=== PATIENT | male | born 1980 | race Caucasian/White ===

== ENCOUNTER → 2019-08-14 | Outpatient (CLI) | payer OTHER ==
[2019-08-14 14:22] LABS: Basophils # (A) 0.1 k/uL (0-0.2); Basophils % (A) 1 %; Eosinophils # (A) 0.2 k/uL (0-0.7); Eosinophils % (A) 3 %; HCT 50.3 % (39.0-53.0); HGB 16.7 gm/dL (13.0-17.5); Lymphocytes # (A) 1.5 k/uL (1.0-4.8); Lymphocytes % (A) 22 %; MCH 31.1 pg (25.0-35.0); MCHC 33.1 g/dL (31.0-37.0); Mean Platelet Volume 7.4; Monocytes # (A) 0.3 k/uL (0-1.0); Monocytes % (A) 4 %; Neutrophils # (A) 4.6 k/uL (1.3-7.7); Neutrophils % (A) 69 %; Platelet Count 255 k/uL (150-450); RBC 5.36 m/uL (4.30-5.90); RDW 12.6 % (11.5-15.5); WBC 6.7 k/uL (3.8-10.6)
[2019-08-14 14:24] LABS: African American GFR (CKD) >90 (>60 ml/min/1.73 sqM); Anion Gap 10 mmol/L; Blood Urea Nitrogen 18 mg/dL (9-20); Calcium 9.2 mg/dL (8.4-10.2); Carbon Dioxide 31 mmol/L (22-30); Chloride 98 mmol/L (98-107); Glucose 98 mg/dL (74-99); Non-African American GFR(CKD) >90 (>60 ml/min/1.73 sqM); Potassium 4.2 mmol/L (3.5-5.1); Sodium 139 mmol/L (137-145)
== END | disposition home or self-care (01) ==
LOC: LABPAT 12:42
PROVIDERS: ATTEND Urology
DX: Z01.812 Encounter for preprocedural laboratory examination (principal); N20.0 Calculus of kidney
CPT/HCPCS: 36415; 80048; 85025

== ENCOUNTER 2019-08-20 07:09 | Day surgery (SDC) | payer OTHER ==
[2019-08-16 08:40] VITALS: BMI 21.5
--- NOTE | 2019-08-18 15:50 | P.GSHP ---
History of Present Illness H&P Date: 08/15/19 Chief Complaint: Left flank pain The patient is a 39-year-old white male with a history of kidney stones. He has experienced left flank pain since February 2019. A KUB x-ray in June 2019 showed a probable 9 mm left renal calculus. Alternative treatment options have been reviewed, and he has elected to undergo extracorporal shockwave lithotripsy (ESWL). 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 Additional Past Surgical History / Comment(s): Melanoma excision age 8, EGD, colonoscopy - Past Family History Mother Family Medical History: Cancer Additional Family Medical History / Comment(s): breast cancer Medications and Allergies Home Medications Medication Instructions Recorded Confirmed Type Acetaminophen [Tylenol Extra 500 mg PO DIRECTED PRN 08/16/19 08/16/19 History Strength] Ascorbic Acid [Vitamin C] 1 dose PO DAILY 08/16/19 08/16/19 History Devils Claw Herbal Supplement 1 dose PO DAILY 08/16/19 History Vitamin B Complex 1 each PO DAILY 08/16/19 08/16/19 History Allergies Allergy/AdvReac Type Severity Reaction Status Date / Time Penicillins Allergy Unknown Rash/Hives Verified 08/16/19 08:29 Surgical - Exam - General well developed, well nourished, no distress - Neck no masses, trachea midline - Respiratory normal respiratory effort, clear to auscultation - Cardiovascular Rhythm: regular Abnormal Heart Sounds: systolic murmur, diastolic murmur - Abdomen Abdomen: soft, non tender, no guarding, no rigid, no rebound - Genitourinary normal penis with no external lesions, testicles non-tender - Psychiatric oriented to time, oriented to person, oriented to place, speech is normal, memory intact Assessment and Plan (1) Left renal stone Status: Acute Code(s): N20.0 - CALCULUS OF KIDNEY SNOMED Code(s): 02086716 Plan: I discussed with the patient the treatment of the calculus with ESWL. I explained the possible need for repeat ESWL or alternative treatment in the event of treatment failure or incomplete fragmentation. I discussed the risks of ESWL, including anesthesia, renal contusion, perinephric hematoma, collateral damage to other organs, and [place]str[place]. The possible need for a secondary intervention such as a stent or ureteroscopy was discussed. The patient expressed an understanding of the procedure and risks including but not limited to bleeding, infection, obstruction, and rarely injury to other organs such as the liver or spleen. The patient understands that the procedure will be performed by Dr. Falk.
[~2019-08-20 07:09] MED LIST: DEXAMETHASONE SOD PHOSPHATE 10 MG/ML 1 ML VIAL IV ONE; LIDOCAINE 1% 20 ML VIAL (10MG/ML) FOR IV START INTRADERMA PRN; MIDAZOLAM 2 MG/2 ML VIAL IV PRN; ONDANSETRON 4 MG/2 ML VIAL IVP ONE; fentaNYL (PF) 50 MCG/ML 2 ML AMP IV PRN
--- NOTE | 2019-08-20 07:36 | XR ---
EXAMINATION TYPE: XR KUB DATE OF EXAM: 08/20/2019 CLINICAL DATA: 39-year-old male preop lithotripsy, [facility] COMPARISON: None FINDINGS: Nonobstructive bowel gas pattern. A few scattered punctate densities projecting over the colon likely some type of ingested medication. 1.0 cm calcification projecting at the left mid abdomen. Mild overall stool burden. IMPRESSION: 1 cm left-sided renal calculus.
[2019-08-20 07:47] VITALS: RESP 16; TEMP 98.7
[2019-08-20] MEDS: LACTATED RINGERS 1,000 ML IV SCH ×2 (07:47→09:01)
[2019-08-20] MEDS ORDERED: fentaNYL (PF) 50 MCG/ML 2 ML AMP ONE (09:00)
[2019-08-20] MEDS ORDERED: MIDAZOLAM 2 MG/2 ML VIAL ONE (09:00)
[2019-08-20] MEDS ORDERED: PROPOFOL 10 MG/ML 20 ML VIAL IV ONE (09:00)
--- NOTE | 2019-08-20 09:36 | P.OP ---
Date of Procedure: 08/20/19 Preoperative Diagnosis: Left renal stone Postoperative Diagnosis: Same Procedure(s) Performed: Extracorporeal shockwave lithotripsy, 2500 shocks, energy level IV Anesthesia: MAC Surgeon: Jamey Falk Pathology: none sent Condition: stable Disposition: PACU Indications for Procedure: The patient is a 39-year-old gentleman with a 9 mm renal stone in the left upper pole with pain. He come for shockwave lithotripsy Description of Procedure: Patient is brought to the operating suite. He's placed in the lithotripsy table in a supine position. The stone was seen in 2 views of fluoroscopy. After adequate IV sedation shockwave lithotripsy is performed. A total 2500 shocks at energy level XL administered. The stone is fractured nicely. At the end of the procedure the patient's awake and returned recovery in good condition. Tell procedure well be discharged home upon recovery. He'll follow-up in the office later this week with . The patient's postoperative instructions have been given and understood by the patient.
[2019-08-20 10:02] VITALS: BP 129/88; PULSE 72
== END 2019-08-20 10:24 | disposition home or self-care (01) ==
LOC: ORWHC2ENDO 07:09
PROVIDERS: ATTEND Urology
DX: N20.0 Calculus of kidney (principal); Z86.711 Personal history of pulmonary embolism; K57.90 Diverticulosis of intestine, part unspecified, without perforation or abscess without bleeding; J70.8 Respiratory conditions due to other specified external agents; Z85.820 Personal history of malignant melanoma of skin; Z80.3 Family history of malignant neoplasm of breast; Z88.0 Allergy status to penicillin
CPT/HCPCS: 74018; 50590; J2250; J1100; J2405; J3010; J2704

== ENCOUNTER → 2019-08-24 | Outpatient (CLI) | payer OTHER ==
--- NOTE | 2019-08-24 07:51 | XR ---
EXAMINATION TYPE: XR abdomen 1V DATE OF EXAM: 08/24/2019 COMPARISON: 08/20/2019 INDICATION: Renal calculus TECHNIQUE: Single view abdomen frontal projection FINDINGS: There is a normal bowel gas pattern. Fecal debris is through the colon. Psoas margins are normal. No organomegaly is present. Previous left-sided renal calcification is not identified at this time. No suspicious calcifications suggest ureteral stone is evident. IMPRESSION: 1. Nonvisualization of previous left renal stone 2. Nonspecific abdomen
== END | disposition home or self-care (01) ==
LOC: RADXRMAIN 07:11
PROVIDERS: ATTEND Urology
DX: N20.0 Calculus of kidney (principal)
CPT/HCPCS: 74018

== ENCOUNTER → 2020-03-26 | Outpatient (CLI) | payer MEDICAID ==
--- NOTE | 2020-03-26 15:20 | XR ---
EXAMINATION TYPE: XR abdomen 1V DATE OF EXAM: 03/26/2020 HISTORY: Pain Comparison: 08/24/2019Single KUB is submitted for interpretation. Findings: Right renal calculi: Limited by overlying bowel content. 3 mm calculus overlies the lower pole of the left kidney. Right ureteral calculi: None Visualized. Left renal calculi: Limited by overlying bowel content. Left ureteral calculi: None Visualized. Pelvic calcifications: None Visualized. Bowel gas pattern is unremarkable. No free air. No mass effects. IMPRESSION: 1. Limited study given extensive overlying bowel content. Probable calculus overlying the lower pole of the left kidney.
== END | disposition home or self-care (01) ==
LOC: RADXRMAIN 14:42
PROVIDERS: ATTEND Urology
DX: N23 Unspecified renal colic (principal)
CPT/HCPCS: 74018

== ENCOUNTER → 2020-03-31 | Outpatient (CLI) | payer MEDICAID ==
--- NOTE | 2020-03-31 15:02 | XR ---
EXAMINATION TYPE: XR KUB DATE OF EXAM: 03/31/2020 COMPARISON: 08/20/2019 INDICATION: Stones TECHNIQUE: Single view abdomen upright view FINDINGS: Normal colonic bowel gas is present to Psoas margins are normal. There are multiple punctate calcifications in the left renal pelvic area. The largest measures approx imately 0.3 cm. IMPRESSION: 1. Small left renal stones
== END | disposition home or self-care (01) ==
LOC: RADXRMAIN 14:35
PROVIDERS: ATTEND Urology
DX: N20.0 Calculus of kidney (principal)
CPT/HCPCS: 74018

== ENCOUNTER → 2020-09-01 | Outpatient (CLI) | payer MEDICAID ==
--- NOTE | 2020-09-01 17:32 | XR ---
EXAMINATION TYPE: XR KUB DATE OF EXAM: 09/01/2020 Comparison: 03/31/2020 Clinical History: 40-year-old male N20.0 Findings: Some type of linear high density artifact is partially visualized projecting at the lower right chest . Clinical correlation is recommended as etiology. Otherwise, lung bases are clear. Supine imaging limited for assessment of free air. No dilated small bowel. Scattered mild to moderate stool burden. There is a 4 mm calcification projecting at the left mid abdomen. Impression: 1. A 4 mm left renal calculus is redemonstrated (measuring 3 mm, previously). 2. Mild to moderate stool burden. 3. Further clinical correlation for a partially visualized linear high density artifact projecting at the lower right chest.
== END ==
LOC: RADXRMAIN 14:33
PROVIDERS: ATTEND Urology
DX: N20.0 Calculus of kidney (principal)
CPT/HCPCS: 74018

== ENCOUNTER 2021-03-05 14:23 | Emergency (ER) | payer MEDICAID ==
[2021-03-05 15:32] VITALS: RESP 18
[2021-03-05] MEDS ORDERED: KETOROLAC 15 MG/ML 1 ML VIAL IVP STA (16:47)
[2021-03-05] MEDS ORDERED: SODIUM CHLORIDE 0.9% 1,000 ML IV STA (16:47)
--- NOTE | 2021-03-05 16:51 | ED ---
General Adult HPI - General Chief complaint: Recheck/Abnormal Lab/Rx Stated complaint: Body Numbness Source: patient, family (Father), RN notes reviewed Mode of arrival: ambulatory Limitations: no limitations - History of Present Illness Initial comments: 41-year-old white male, alert and active 4, presents to the emergency room with complaints of whole body numbness and tingling, fatigue, pelvic pain, left flank pain and possible kidney stone. Patient states that in the past he has been treated for pulmonary embolisms. He does have a history of diverticulosis. States that he was told he had a kidney stone on the left that was 4 mm and that he would need to pass it. He was supposed to follow up with Dr. Carlos 4 months ago and did not. 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 He now lives here with his dad and needs new doctors. Patient states that he has lower abdominal pain that radiated from his left flank and is concerned for possible urinary tract infection as well. He denies any nausea vomiting or diarrhea. He states he's had no fevers. No headaches, chest pain or shortness of breath. -: days(s) (2) Location: abdomen Radiation: non-radiation Severity scale (1-10): 6 Quality: sharp Consistency: constant Improves with: none Worsens with: none Associated Symptoms: malaise, other (Whole body numbness and tingling) Treatments Prior to Arrival: none - Related Data Home Medications Medication Instructions Recorded Confirmed Ascorbic Acid [Vitamin C] 1,000 mg PO DAILY 03/05/21 03/05/21 Multivitamins, Thera [Multivitamin 1 tab PO DAILY 03/05/21 03/05/21 (formulary)] Zinc 50 mg PO DAILY 03/05/21 03/05/21 Allergies Allergy/AdvReac Type Severity Reaction Status Date / Time Penicillins Allergy Unknown Rash/Hives Verified 03/05/21 18:11 Review of Systems ROS Statement: Those systems with pertinent positive or pertinent negative responses have been documented in the HPI. ROS Other: All systems not noted in ROS Statement are negative. 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 History of Any Multi-Drug Resistant Organisms: None Reported Additional Past Surgical History / Comment(s): Melanoma excision age 8, EGD, colonoscopy Past Anesthesia/Blood Transfusion Reactions: No Reported Reaction Past Psychological History: No Psychological Hx Reported Smoking Status: Never smoker Past Alcohol Use History: Rare Past Drug Use History: None Reported - Past Family History Mother Family Medical History: Cancer Additional Family Medical History / Comment(s): breast cancer General Exam Limitations: no limitations General appearance: alert, in no apparent distress, anxious Head exam: Present: atraumatic, normocephalic, normal inspection Eye exam: Present: EOMI ENT exam: Present: normal exam, normal oropharynx, mucous membranes moist Neck exam: Present: normal inspection, full ROM. Absent: tenderness, meningismus, lymphadenopathy Respiratory exam: Present: normal lung sounds bilaterally. Absent: respiratory distress, wheezes, rales, rhonchi, stridor Cardiovascular Exam: Present: regular rate, normal rhythm, normal heart sounds. Absent: systolic murmur, diastolic murmur, rubs, gallop, clicks GI/Abdominal exam: Present: soft, tenderness (Pelvic), normal bowel sounds. Absent: distended, guarding, rebound, rigid Extremities exam: Present: normal inspection, full ROM, normal capillary refill. Absent: tenderness, pedal edema, joint swelling, calf tenderness Back exam: Absent: tenderness, CVA tenderness (R), CVA tenderness (L), muscle spasm, paraspinal tenderness, vertebral tenderness Neurological exam: Present: alert, oriented X3, CN II-XII intact, normal gait Expanded Patient oriented to: Present: person, place, time Speech: Present: fluid speech Eye Response: (4) open spontaneously Motor Response: (6) obeys commands Verbal Response: (5) oriented [place] Total: 15 Psychiatric exam: Present: normal affect, normal mood, anxious Skin exam: Present: warm, dry, intact, normal color. Absent: rash, cyanosis, diaphoretic Course Vital Signs 03/05/21 03/05/21 03/05/21 15:28 17:22 19:16 Temperature 98.6 F Pulse Rate 86 88 88 Respiratory 18 18 18 Rate Blood Pressure 144/94 134/90 148/99 O2 Sat by Pulse 96 97 95 Oximetry Medical Decision Making - Medical Decision Making X-ray KUB shows a 4 mm calcification over the left renal projecting over the lower pole medially. There is no acute process. His white blood cell count was 6.7, he no evidence of anemia. His electrolytes are unremarkable. His urine is clear infection. He'll be directed to follow up with his primary care doctor or return if any new or worsening symptoms. - Lab Data Result diagrams: 03/05/21 17:20 03/05/21 17:20 Lab Results 03/05/21 03/05/21 03/05/21 Range/Units 17:20 17:20 17:20 WBC 6.7 (3.8-10.6) k/uL RBC 5.46 (4.30-5.90) m/uL Hgb 17.9 H (13.0-17.5) gm/dL Hct 50.9 (39.0-53.0) % MCV 93.2 (80.0-100.0) fL MCH 32.7 (25.0-35.0) pg MCHC 35.1 (31.0-37.0) g/dL RDW 13.1 (11.5-15.5) % Plt Count 245 (150-450) k/uL MPV 6.9 Neutrophils % 67 % Lymphocytes % 24 % Monocytes % 5 % Eosinophils % 3 % Basophils % 1 % Neutrophils # 4.5 (1.3-7.7) k/uL Lymphocytes # 1.6 (1.0-4.8) k/uL Monocytes # 0.3 (0-1.0) k/uL Eosinophils # 0.2 (0-0.7) k/uL Basophils # 0.0 (0-0.2) k/uL Sodium 137 (137-145) mmol/L Potassium 3.9 (3.5-5.1) mmol/L Chloride 103 (98-107) mmol/L Carbon Dioxide 26 (22-30) mmol/L Anion Gap 8 mmol/L BUN 9 (9-20) mg/dL Creatinine 0.73 (0.66-1.25) mg/dL Est GFR (CKD-EPI)AfAm >90 (>60 ml/min/1.73 sqM) Est GFR (CKD-EPI)NonAf >90 (>60 ml/min/1.73 sqM) Glucose 99 (74-99) mg/dL Plasma Lactic Acid Pankaj 1.0 (0.7-2.0) mmol/L Calcium 9.6 (8.4-10.2) mg/dL Total Bilirubin 0.4 (0.2-1.3) mg/dL AST 20 (17-59) U/L ALT 15 (4-49) U/L Alkaline Phosphatase 76 (38-126) U/L Total Protein 7.5 (6.3-8.2) g/dL Albumin 4.8 (3.5-5.0) g/dL Amylase 85 (30-110) U/L Lipase 93 (23-300) U/L Urine Color Urine Appearance (Clear) Urine pH (5.0-8.0) Ur Specific [place] (1.001-1.035) Urine Protein (Negative) Urine Glucose (UA) (Negative) Urine Ketones (Negative) Urine Blood (Negative) Urine Nitrite (Negative) Urine Bilirubin (Negative) Urine Urobilinogen (<2.0) mg/dL Ur Leukocyte Esterase (Negative) 03/05/21 Range/Units 19:10 WBC (3.8-10.6) k/uL RBC (4.30-5.90) m/uL Hgb (13.0-17.5) gm/dL Hct (39.0-53.0) % MCV (80.0-100.0) fL MCH (25.0-35.0) pg MCHC (31.0-37.0) g/dL RDW (11.5-15.5) % Plt Count (150-450) k/uL MPV Neutrophils % % Lymphocytes % % Monocytes % % Eosinophils % % Basophils % % Neutrophils # (1.3-7.7) k/uL Lymphocytes # (1.0-4.8) k/uL Monocytes # (0-1.0) k/uL Eosinophils # (0-0.7) k/uL Basophils # (0-0.2) k/uL Sodium (137-145) mmol/L Potassium (3.5-5.1) mmol/L Chloride (98-107) mmol/L Carbon Dioxide (22-30) mmol/L Anion Gap mmol/L BUN (9-20) mg/dL Creatinine (0.66-1.25) mg/dL Est GFR (CKD-EPI)AfAm (>60 ml/min/1.73 sqM) Est GFR (CKD-EPI)NonAf (>60 ml/min/1.73 sqM) Glucose (74-99) mg/dL Plasma Lactic Acid Pankaj (0.7-2.0) mmol/L Calcium (8.4-10.2) mg/dL Total Bilirubin (0.2-1.3) mg/dL AST (17-59) U/L ALT (4-49) U/L Alkaline Phosphatase (38-126) U/L Total Protein (6.3-8.2) g/dL Albumin (3.5-5.0) g/dL Amylase (30-110) U/L Lipase (23-300) U/L Urine Color Yellow Urine Appearance Clear (Clear) Urine pH 6.5 (5.0-8.0) Ur Specific [place] 1.009 (1.001-1.035) Urine Protein Negative (Negative) Urine Glucose (UA) Negative (Negative) Urine Ketones Negative (Negative) Urine Blood Negative (Negative) Urine Nitrite Negative (Negative) Urine Bilirubin Negative (Negative) Urine Urobilinogen <2.0 (<2.0) mg/dL Ur Leukocyte Esterase Negative (Negative) Disposition Clinical Impression: Abdominal pain Disposition: HOME SELF-CARE Condition: Good Instructions (If sedation given, give patient instructions): Abdominal Pain (ED) Additional Instructions: Return to the emergency room with any new or worsening symptoms including fever, chest pain or shortness of breath. Follow-up with neurology and primary care doctor as provided Is patient prescribed a controlled substance at d/c from ED?: No Referrals: None,Stated [Primary Care Provider] - 1-2 days Duarte Granados MD [STAFF PHYSICIAN] - 1-2 days Uri Trujillo DO [STAFF PHYSICIAN] - 1-2 days Austin Mario MD [STAFF PHYSICIAN] - 1-2 days Time of Disposition: 19:49
[2021-03-05 17:36] LABS: Basophils % (A) 1 %; Eosinophils # (A) 0.2 k/uL (0-0.7); Eosinophils % (A) 3 %; HCT 50.9 % (39.0-53.0); HGB 17.9 gm/dL (13.0-17.5); Lymphocytes # (A) 1.6 k/uL (1.0-4.8); Lymphocytes % (A) 24 %; MCH 32.7 pg (25.0-35.0); MCHC 35.1 g/dL (31.0-37.0); MCV 93.2 fL (80.0-100.0); Mean Platelet Volume 6.9; Monocytes # (A) 0.3 k/uL (0-1.0); Monocytes % (A) 5 %; Neutrophils # (A) 4.5 k/uL (1.3-7.7); Neutrophils % (A) 67 %; Platelet Count 245 k/uL (150-450); RBC 5.46 m/uL (4.30-5.90); RDW 13.1 % (11.5-15.5); WBC 6.7 k/uL (3.8-10.6)
[2021-03-05 17:45] LABS: ALT 15 U/L (4-49); AST 20 U/L (17-59); African American GFR (CKD) >90 (>60 ml/min/1.73 sqM); Albumin 4.8 g/dL (3.5-5.0); Alkaline Phosphatase 76 U/L (38-126); Amylase 85 U/L (30-110); Anion Gap 8 mmol/L; Blood Urea Nitrogen 9 mg/dL (9-20); Calcium 9.6 mg/dL (8.4-10.2); Carbon Dioxide 26 mmol/L (22-30); Chloride 103 mmol/L (98-107); Glucose 99 mg/dL (74-99); Lipase 93 U/L (23-300); Non-African American GFR(CKD) >90 (>60 ml/min/1.73 sqM); Potassium 3.9 mmol/L (3.5-5.1); Sodium 137 mmol/L (137-145); Total Bilirubin 0.4 mg/dL (0.2-1.3); Total Protein 7.5 g/dL (6.3-8.2)
--- NOTE | 2021-03-05 17:50 | XR ---
EXAMINATION TYPE: XR KUB - 2 VIEWS DATE OF EXAM: 03/05/2021 5:03 PM CLINICAL HISTORY: Pain, weakness TECHNIQUE: 2 upright views COMPARISON: 09/01/2020 FINDINGS: Visualized lung bases and pleural spaces are negative. Scattered gas is seen in non-distended small bowel loops. Gas and fecal material is seen in non-distended colon. There is no visceromegaly or mass appreciated. The previously seen 4 mm calcification over the left renal shadow appears to remain, projecting over the lower pole medially. No other calcifications. No focal skeletal findings. IMPRESSION: No acute process.
[2021-03-05 19:34] LABS: Appearance,Urine Clear (Clear); Bilirubin,Urine Negative (Negative); Blood,Urine Negative (Negative); Color,Urine Yellow; Glucose,Urine (UA) Negative (Negative); Ketones,Urine Negative (Negative); Leukocyte Esterase,Urine Negative (Negative); Nitrite,Urine Negative (Negative); PH, Urine 6.5 (5.0-8.0); Protein,Urine Negative (Negative); Specific Gravity,Urine 1.009 (1.001-1.035); Urobilinogen,Urine <2.0 mg/dL (<2.0)
[2021-03-05 20:32] VITALS: BP 149/99; PULSE 86; TEMP 98.5
== END 2021-03-05 20:30 | disposition home or self-care (01) ==
LOC: EC 14:23
DX: R10.9 Unspecified abdominal pain (principal); Z86.711 Personal history of pulmonary embolism; Z88.0 Allergy status to penicillin
CPT/HCPCS: 99284; 96374; 96361; 36415; 80053; 82150; 83605; 83690; 85025; 81003; 74018; J1885

== ENCOUNTER → 2021-03-10 | Outpatient (CLI) | payer MEDICAID | END | disposition home or self-care (01) | LOC: LABWHC1 14:30 | PROVIDERS: ATTEND Emergency Medicine | DX: Z20.822 Contact with and (suspected) exposure to COVID-19 (principal) | CPT/HCPCS: 87635; C9803 ==

== ENCOUNTER 2021-04-30 10:42 | Emergency (ER) | payer BC, MEDICAID ==
[2021-04-30 10:48] VITALS: BP 143/98; PULSE 95; RESP 18; TEMP 98.8
[2021-04-30] MEDS ORDERED: DEXAMETHASONE SOD PHOSPHATE 10 MG/ML 1 ML VIAL IM STA (11:01)
--- NOTE | 2021-04-30 11:28 | XR ---
EXAMINATION TYPE: XR chest 2V DATE OF EXAM: 04/30/2021 COMPARISON: NONE HISTORY: Chest pain TECHNIQUE: Frontal and lateral views of the chest are obtained. FINDINGS: There is no focal air space opacity. No evidence for pneumothorax. No pleural effusion. The cardiac silhouette size is within normal limits. The osseous structures are grossly intact. IMPRESSION: 1. No acute cardiopulmonary process.
--- NOTE | 2021-04-30 11:39 | ED ---
URI HPI - General Source: patient, RN notes reviewed Mode of arrival: ambulatory Limitations: no limitations <Deangelo Amin - Last Filed: 04/30/21 11:35> <Sonia Hammond - Last Filed: 05/12/21 00:51> - General Chief Complaint: Upper Respiratory Infection Stated Complaint: Covid+/fever/abd pain Time Seen by Provider: 04/30/21 10:52 - History of Present Illness Initial Comments: 41-year-old male presents to emergency department complaining of upper respiratory tract symptoms. He notes that he tested positive for Covid approximately a week ago. He notes that he's been taking vitamin C vitamin D zinc and antipyretics at home. He notes that it does not seem like his symptoms are getting better. He denied any other chronic health conditions. He was otherwise well-appearing. He denied any chest pain shortness breath headache nausea vomiting diarrhea constipation fever fatigue chills. (Deangelo Amin) - Related Data Home Medications Medication Instructions Recorded Confirmed Ascorbic Acid [Vitamin C] 1,000 mg PO DAILY 03/05/21 04/30/21 Multivitamins, Thera [Multivitamin 1 tab PO DAILY 03/05/21 04/30/21 (formulary)] Zinc 50 mg PO DAILY 03/05/21 04/30/21 Allergies Allergy/AdvReac Type Severity Reaction Status Date / Time Penicillins Allergy Unknown Rash/Hives Verified 04/30/21 11:30 Review of Systems ROS Other: All systems not noted in ROS Statement are negative. <Deangelo Amin - Last Filed: 04/30/21 11:35> ROS Other: All systems not noted in ROS Statement are negative. <Sonia Hammond - Last Filed: 05/12/21 00:51> ROS Statement: Those systems with pertinent positive or pertinent negative responses have been documented in the HPI. 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 History of Any Multi-Drug Resistant Organisms: None Reported Additional Past Surgical History / Comment(s): Melanoma excision age 8, EGD, co lonoscopy Past Anesthesia/Blood Transfusion Reactions: No Reported Reaction Past Psychological History: No Psychological Hx Reported Smoking Status: Never smoker Past Alcohol Use History: Rare Past Drug Use History: None Reported - Past Family History Mother Family Medical History: Cancer Additional Family Medical History / Comment(s): breast cancer <Deangelo Amin - Last Filed: 04/30/21 11:35> General Exam Limitations: no limitations General appearance: alert, in no apparent distress Head exam: Present: atraumatic, normocephalic, normal inspection Eye exam: Present: normal appearance, PERRL, EOMI. Absent: scleral icterus, conjunctival injection, periorbital swelling ENT exam: Present: normal exam, mucous membranes moist Neck exam: Present: normal inspection Respiratory exam: Present: normal lung sounds bilaterally. Absent: respiratory distress, wheezes, rales, rhonchi, stridor Cardiovascular Exam: Present: regular rate, normal rhythm, normal heart sounds. Absent: systolic murmur, diastolic murmur, rubs, gallop, clicks Extremities exam: Present: normal inspection, full ROM, normal capillary refill. Absent: tenderness, pedal edema, joint swelling, calf tenderness Neurological exam: Present: alert, oriented X3 Psychiatric exam: Present: normal affect, normal mood Skin exam: Present: warm, dry, intact, normal color. Absent: rash <Deangelo Amin - Last Filed: 04/30/21 11:35> Course Vital Signs 04/30/21 10:44 Temperature 98.8 F Pulse Rate 95 Respiratory 18 Rate Blood Pressure 143/98 O2 Sat by Pulse 95 Oximetry Medical Decision Making - Radiology Data Radiology results: report reviewed, image reviewed <Deangelo Amin - Last Filed: 04/30/21 11:35> <Sonia Hammond - Last Filed: 05/12/21 00:51> - Medical Decision Making 41-year-old male complaining of continuing symptoms, Covid positive. Chest x-ray ordered. 10mg of Decadron ordered. Patient does not meet criteria for monoclonal antibody. Chest x-ray negative for any acute cardiopulmonary process. Patient is agreeable with discharge home with follow-up primary care and continuing conservative management. Case discussed with Dr. Hammond, patient can discharge home. (Deangelo Amin) I was available for consultation in the emergency department. The history and physical exam were done by the midlevel provider. I was consulted for this patients care. I reviewed the case with the midlevel provider and based on their presentation of the patient, I agree with the assessment, medical decision making and plan of care as documented. Chart was dictated using [employer] dictation software. Attempts were made to correct any dictation errors however some typographical errors may persist. (Sonia Hammond) - Radiology Data Chest x-ray: No acute cardiopulmonary process. (Deangelo Amin) Disposition Is patient prescribed a controlled substance at d/c from ED?: No Time of Disposition: 11:38 <Deangelo Amin - Last Filed: 04/30/21 11:35> <Sonia Hammond - Last Filed: 05/12/21 00:51> Clinical Impression: COVID Disposition: HOME SELF-CARE Condition: Stable Instructions (If sedation given, give patient instructions): Upper Respiratory Infection (ED) Additional Instructions: Please return to the Emergency Department if symptoms worsen or any other concerns. Follow-up with primary care 1-2 days. Kidney conservative management home. Referrals: None,Stated [Primary Care Provider] - 1-2 days
== END 2021-04-30 12:12 | disposition home or self-care (01) ==
LOC: EC 10:42
DX: U07.1 COVID-19 (principal); Z88.0 Allergy status to penicillin; Z86.711 Personal history of pulmonary embolism
CPT/HCPCS: 99283 ×2; 96372 ×2; 71046; J1100